=== PATIENT | female | born 1985 | race Caucasian/White ===

== ENCOUNTER 2019-08-04 13:00 | Day surgery (SDC) | payer OTHER ==
[~2019-08-04 13:00] MED LIST: AMOXICILLIN500 M1 PO; CARISOPRODOL350 MG PO; DICLOFENAC POTA50 MG PO
== END 2019-08-04 17:10 | disposition home or self-care (01) ==
LOC: AMB-ENDOS 13:00
DX: K29.60 Other gastritis without bleeding (principal)

== ENCOUNTER → 2020-02-07 | Outpatient (CLI) | payer OTHER | END | disposition home or self-care (01) | LOC: PRENATAL 13:00 | DX: O35.3XX1 Maternal care for (suspected) damage to fetus from viral disease in mother, fetus 1 (principal); O09.522 Supervision of elderly multigravida, second trimester; O28.1 Abnormal biochemical finding on antenatal screening of mother; O99.89 Other specified diseases and conditions complicating pregnancy, childbirth and the puerperium; O99.212 Obesity complicating pregnancy, second trimester ==

== ENCOUNTER → 2020-04-03 | Outpatient (CLI) | payer OTHER | END | disposition home or self-care (01) | LOC: PRENATAL 14:00 | PROVIDERS: ATTEND Obstetrics & Gynecology Gynecology | DX: O26.843 Uterine size-date discrepancy, third trimester (principal); O09.523 Supervision of elderly multigravida, third trimester; O28.1 Abnormal biochemical finding on antenatal screening of mother; O99.89 Other specified diseases and conditions complicating pregnancy, childbirth and the puerperium; O99.213 Obesity complicating pregnancy, third trimester ==